=== PATIENT | male | born 1930 | race Caucasian/White ===

== ENCOUNTER → 2016-08-27 | Day surgery (SDC) | payer MEDICARE, SELFPAY ==
[2015-03-22 08:09] VITALS: BMI 22.8
[~2016-08-27] MED LIST: ESMOLOL 100 MG/10 ML VIAL IV ONE; FENTANYL 100 MCG/2 ML VIAL IV ONE; FENTANYL 100 MCG/2 ML VIAL IV PRN; HYDROmorphone 1 MG INJECTION IV PRN; ISOVUE-300 (61%) 50 ML ONE; LABETALOL 20 MG/4 ML SYRINGE IV PRN; LIDOCAINE 100 MG PFS IV ONE; Levofloxacin 500 mg/100 ml D5W 500 MG/100 ML RTU IV ONE; MEPERIDINE 25 MG/ML TUBEX IV PRN; ONDANSETRON HCL 4 MG ODT TAB PO PRN; ONDANSETRON HCL 4 MG/2 ML VIAL IV PRN; OXYCODONE HCL 5 MG TABLET ONE; PROMETHAZINE 25 MG/ML VIAL IV PRN; PROPOFOL 200 MG/20 ML VIAL IV ONE; SCOPOLAMINE TRANSDERMAL PATCH TOP ONE; hydrALAZINE 20 MG/ML VIAL IV PRN
[2016-08-27 06:32] LABS: AUTOMATED BASOPHIL 0.5 % (0-2); AUTOMATED EOSINOPHIL 0.9 % (0-5); AUTOMATED LYMPH 25.7 % (17-44); AUTOMATED MONOCYTE 8.3 % (3-10); AUTOMATED NEUTROPHIL 64.6 % (45-76); MPV 8.5 fL (7.4-10.4)
[2016-08-27 06:38] LABS: BLOOD UREA NITROGEN 21 MG/DL (9-20); CALCIUM 9.4 MG/DL (8.4-10.2); CALCULATED OSMOLALITY 274 MOs/Kg (270-290); CHLORIDE 106 mEq/L (98-107); GLUCOSE 102 MG/DL (70-99); SODIUM LEVEL 141 mEq/L (137-146)
--- NOTE | 2016-08-27 06:54 | SC.ANESPOS ---
Post-Anesthesia Note LOC: [facility] Calling Post-Anesthesia Assessment: Awake, Returned to Baseline, Hemodynamically Stable , Pain Control Adequate Phase I & II Recovery Complete: Yes Apparent Anesthesia Complication: No : N - Vital Signs Blood Pressure: 136/73 Pulse: 93 Resp Rate: 18 O2 Sat: 98 Temp: 97.4 F
--- NOTE | 2016-08-27 06:56 | HIM.ANES ---
Anesthesia Evaluation & Plan Diagnoses: UNSPECIFIED HYDRONEPHROSIS (08/27/16) Consented Procedure: CYSTOSCOPY,RIGHT RETROGRADE PYELOGRAM, RIGHT STENT EXCHANGE - Focused Review of Systems Cardiac History: Yes: Hx Hypertension, Hx Cardiac Catheterization, Hx Afib/ Aflutter (CHRONIC), Hx Cardiac Disorders, Hx Abnormal Cholesterol/Hyperlipidemia HEENT: Yes: Hx Vision Problem (PRESCRIPTION GLASSES), Other HEENT Problems Hx Other HEENT Surgery: T&A Hx Other HEENT Problems: RHINNITIS Respiratory: Yes: Hx Snoring, Hx Recent Cold/Flu (10/29/2015) Gastrointestinal: Yes: Hx Gastroesophageal Reflux Disease (Controlled), Hx Gastrointestinal Disorders, Hx Diverticulosis (PER COLONOSCOPY), Hx Colonoscopy Genitourinary: Neurological/Musculoskeletal: No: Hx Neurological Disorders Other Neurological Problems: MAURI MYN SPOTTED FEVER AGE 4 Physiological: No Hx Mental/Emotional Disorders Blood/Autoimmune: Yes: Hx Blood Transfusions, Hx Anemia (CHRONIC) No: Hx AIDS, Hx Hepatitis (type) Smoking Status: Former smoker Hx Echocardiogram (date): Yes (10/27/2012 LVEF >55% MILD MR, TR LA MOD ENLARGED ) Hx Chest Xray (date): Yes (10/2011 NORMAL LUNG [place]UGH[place]) Surgical History: Yes: Ureter Stent (DOUBLE J), TURP Other Surgical History: T&A PROSTATECTOMY 09/2004, SEED IMPLANTS, MULTIPLE STENT REPLACEMENTS - Focused Physical Exam NPO since: 08/26/162099 Mallampati: Class II Thyromental Distance: Greater than 3 Neck: Full Range of Motion Dental: Normal - no significant findings Cardiovascular/Chest: Normal Respiratory: Lungs clear Any problems with anesthesia, including nausea and vomiting?: Yes (NAUSEA) Any relatives with a history of Malignant Hyperthermia?: No Beta Chacho given (if appropriate): N/A Other: CBC/BMP/Other 08/27/16 06:10 08/27/16 06:10 Allergies Allergy/AdvReac Type Severity Reaction Status Date / Time No Known Allergies Allergy Verified 08/27/16 06:08 Home Medications Medication Instructions Recorded Last Taken Type Atorvastatin Calcium [Lipitor] 5 mg PO DAILY 09/08/12 08/26/16 08:00 History Diltiazem HCl [Diltiazem 24Hr ER] 120 mg PO HS 09/08/12 08/26/16 19:00 History Lisinopril [Prinivil,Zestril] 10 mg PO DAILY 09/08/12 08/27/16 05:00 History Ranitidine [Zantac] 150 mg PO DAILY 09/08/12 08/27/16 05:00 History Tamsulosin HCl [Flomax] 0.4 mg PO HS 09/08/12 08/26/16 19:00 History Enzalutamide [Xtandi] 120 mg PO HS 04/01/16 08/26/16 19:00 History Acetaminophen [Tylenol] 325 - 650 mg PO Q4-6H PRN 08/26/16 08/25/16 History Height and Weight Patient's height 5 ft 7 in Patient's weight 148 lb BMI 22.8 Vital Signs Temperature 97.4 F L 08/27/16 06:54 Pulse Rate 93 08/27/16 06:54 Respiratory Rate 18 08/27/16 06:54 Blood Pressure 136/73 08/27/16 06:54 Pulse Oxygen Saturation 98 08/27/16 06:54 - Anesthetic Plan Anesthesia Type: General ASA Class: 3 -: I have examined this patient and reviewed the medical record. The patient has been assessed prior to anesthesia. Risks and benefits of anesthesia and anesthetic technique options have been discussed and all questions answered. The patient accepts the risk and desires me to proceed with the planned anesthetic.
--- NOTE | 2016-08-27 07:55 | HIMOPRPT ---
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 POSTOPERATIVE DIAGNOSIS: [ SAME PREOP DIAGNOSIS. PROCEDURE PERFORMED: [ CYSTOSCOPY REMOVAL OPEN OR DOUBLE-J STENT RIGHT RETROGRADE PYELOGRAM AND PLACEMENT OF A NEW DOUBLE-J STENT 6 [place] 24 CM DOUBLE -J STENT WITHOUT A STRING WAS USED]. ANESTHESIA: [GENERAL ANESTHESIA ]. SURGEON: Juan Miguel Rice MD PROCEDURE IN DETAIL: [THIS PATIENT WAS TAKEN TO THE OPERATING ROOM----, WAS GIVEN GENERAL ANESTHESIA, HE WAS THEN PUT UP IN LITHOTOMY POSITION AND WAS PREPPED AND DRAPED IN THE USUAL STERILE FASHION--- A 23 [place] CYSTOSCOPE WAS INTRODUCED INTO THE BLADDER---- BLADDER SHOWS NO EVIDENCE OF ANY TUMORS OR STONES--- THE LOWER AND OF THE DOUBLE-J STENT WAS GRASPED WITH THE HELP OF GRASPING FORCEPS AND OLD DOUBLE-J STENT WAS REMOVED---THEN A 0.38 GUIDEWIRE WAS PASSED THROUGH THE RIGHT URETERAL ORIFICE AND GUIDED INTO THE AREA OF THE RENAL PELVIS OVER THIS A OPEN-ENDED CATHETER WAS THEN PASSED AND RETROGRADE PYELOGRAMS OBTAINED WHICH SHOWS MODERATE HYDRONEPHROSIS AND THE GUIDEWIRE WAS REPLACED AND OVER THE GUIDEWIRE A 6 [place] 24 CM DOUBLE-J CATHETER WAS PASSED AND POSITIONED SO THAT UPPER END WAS CURLED UP IN THE RENAL PELVIS AND LOWER CURLED UP IN THE BLADDER ----BLADDER WAS THEN EMPTIED, CYSTOSCOPE WAS REMOVED- -- PATIENT WAS SUBSEQUENTLY RETURNED TO THE RECOVERY AND SATISFACTORY CONDITION. ].
[2016-08-27 13:58] VITALS: BP 136/73; PULSE 93; TEMP 97.4
--- NOTE | 2016-08-28 16:24 | CAPUEKG ---
[place], [place] Test Date: 2016-08-27 Pat Name: LA LOVE Department: Room: Gender: Male Scientific Advisor: KALPEHS HOWARDB: Requested By: Order Number: Reading MD: Shimon Singh Measurements Intervals [place] Rate: 94 P: IA: QRS: 56 QRSD: 110 T: 267 QT: 360 QTc: 450 Interpretive Statements Atrial fibrillation Minimal voltage criteria for LVH, may be normal variant ST depression, consider anterolateral subendocardial injury or ischemia No change from prior tracing. Nonspecific T wave abnormality, probably digitalis effect Abnormal ECG Electronically Signed On 08-28-16 16:23:43 EST by Shimon Singh <[id number]> [id number]
== END ==
LOC: SDC 05:35
PROVIDERS: ATTEND Urology
PROC: 0TP98DZ Removal of Intraluminal Device from Ureter, Via Natural or Artificial Opening Endoscopic (ICD-10-PCS; 2016-08-27)
PROC: 0T768DZ Dilation of Right Ureter with Intraluminal Device, Via Natural or Artificial Opening Endoscopic (ICD-10-PCS; principal; 2016-08-27 07:15)
DX: N13.1 Hydronephrosis with ureteral stricture, not elsewhere classified (principal); I10 Essential (primary) hypertension; I48.91 Unspecified atrial fibrillation; E78.5 Hyperlipidemia, unspecified; K21.9 Gastro-esophageal reflux disease without esophagitis; Z87.891 Personal history of nicotine dependence; C61 Malignant neoplasm of prostate; Z79.899 Other long term (current) drug therapy
CPT/HCPCS: 52332; 80048; 85025; 93005; A9270; C2617; J1956; J2001; J3010; J3490